=== PATIENT | male | born 2005 | race Caucasian/White ===

== ENCOUNTER 2023-08-10 13:39 | Emergency (ER) | payer BC, SELFPAY ==
[2023-08-10 13:42] VITALS: BP 132/69
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
[2023-08-10 15:09] VITALS: BP 119/57
[2023-08-10 15:19] VITALS: BP 119/57
== END 2023-08-10 15:19 | disposition home or self-care (01) ==
LOC: EMR 13:39
PROVIDERS: EMERGENCY PHYSICIAN Emergency Medicine
DX: S61.211A Laceration without foreign body of left index finger without damage to nail, initial encounter (principal); W26.0XXA Contact with knife, initial encounter; V89.2XXA Person injured in unspecified motor-vehicle accident, traffic, initial encounter; J45.909 Unspecified asthma, uncomplicated
CPT/HCPCS: 99282; 12001